=== PATIENT | male | born 1965 | race American Indian/Alaskan Native ===

== ENCOUNTER 2020-01-07 21:20 | Inpatient (IN) | payer OTHER ==
[2020-01-07 22:21] LABS: #Basophils 0.1 thou/uL (0.0-0.2); #Eosinphils 0.2 thou/uL (0.0-0.7); #Lymphocytes 3.9 thou/uL (1.20-3.40); #Monocytes 0.6 thou/uL (0.11-0.59); #Neutrophils 3.8 thou/uL (1.40-6.50); %Basophils 0.9 % (0.0-1.0); %Eosinophils 2.4 % (0.0-10.0); %Lymphocytes 45.7 % (21.0-51.0); %Monocytes 6.7 % (0.0-10.0); %Neutrophils 44.4 % (42.0-75.0); Hemoglobin 14.6 g/dL (14.0-18.0); Mean Corpuscular HGB CONC 34.8 g/dL (32.0-36.0); Mean Corpuscular Hemoglobin 33.1 pg (27.0-31.0); Mean Platelet Volume 6.8 fL (7.4-10.4); Platelet Count 286 thou/uL (130-400); RBC Distribution Width 11.1 % (11.5-14.5); Red Blood Cell (RBC) Count 4.42 mill/uL (4.70-6.10); White Blood Cell (WBC) Count 8.5 thou/uL (4.8-10.8)
[2020-01-07] MEDS ORDERED: Ketamine 50 MG/ML (10ML VIAL) ONE (22:38)
[2020-01-07 22:44] LABS: ALT (SGPT) 35 U/L (8-55); AST (SGOT) 31 U/L (5-34); Acetaminophen Less than 6.0 mcg/mL (10.0-30.0); Albumin 4.7 g/dL (3.5-5.0); Alcohol 372 mg/dL (Less than 10); Alkaline Phosphatase 54 U/L (40-110); Anion Gap 16 mmol/L (10-20); BUN (Urea Nitrogen) 12 mg/dL (8.4-25.7); Bilirubin, Total 0.6 mg/dL (0.2-1.2); Calc. Creatinine Clearance 0 mL/min (70-130); Calcium 9.4 mg/dL (7.8-10.44); Carbon Dioxide 22 mmol/L (22-29); Chloride 109 mmol/L (98-107); Estimated GFR-MDRD Greater than 90; Globulin 2.9 g/dL (2.4-3.5); Glucose 108 mg/dL (70-105); Potassium 3.5 mmol/L (3.5-5.1); Protein, Total 7.6 g/dL (6.0-8.3); Salicylate Less than 8.0 mg/dL (15.0-30.0); Sodium 143 mmol/L (136-145)
[2020-01-07] MEDS ORDERED: Rocuronium Bromide 50 MG/5 ML VIAL ONE (22:57)
[2020-01-07] MEDS ORDERED: fentaNYL Citrate/PF 2,000 MCG in Sodium Chloride 0.9% 60 ML IV SCH (23:11)
--- NOTE | 2020-01-07 23:16 | RAD ---
Chest one view HISTORY: Chest pain. COMPARISON: 01/03/2015. FINDINGS: Cardiac silhouette is magnified by projection. Pulmonary vasculature is unremarkable. Mediastinum is midline. Tip of an endotracheal catheter overlies the thoracic inlet. Nasogastric tube is coiled over the stomach. Calcified granulomata are consistent with healed granulomatous disease. No lobar consolidation or evidence of pneumothorax. IMPRESSION : Endotracheal catheter and nasogastric tube are in good radiographic position.
[2020-01-07 23:28] LABS: Actual Bicarbonate (HCO3a) 20.5 mEq/L (22-28); Analyzer IN Cardio ER; CO2 Tension 39.6 mmHg (35.0-45.0); Calcium, Ionized (arterial) 1.17 mmol/L (1.12-1.30); Carboxyhemoglobin (COHb) 2.7 gm% (0.0-3.0); Hemoglobin (Hb) 15.4 g/dL (14.0-18.0); O2 Tension (PaO2), arterial 95.6 mmHg (80.0-100.0); pH, Arterial 7.33 (7.35-7.45)
[2020-01-07 23:34] LABS: Puncture Site RRA
[2020-01-08] MEDS ORDERED: Propofol 1,000 MG/100 ML VIAL IV ONE (00:02)
[2020-01-08] MEDS ORDERED: Propofol BOLUS 1,000 MG/100 ML VIAL IV PRN (00:04)
[2020-01-08] MEDS ORDERED: DISCONTINUE PREVIOUS NARCOTIC PAIN MEDICATIONS AND BENZODIAZEPINES FS SCH (00:04)
[2020-01-08] MEDS ORDERED: Fentanyl BOLUS 250 ML IVPB PRN (00:04)
[2020-01-08] MEDS: Lorazepam 2 MG/ML VIAL SLOW IVP PRN ×2 (00:46→07:14)
[2020-01-08] MEDS: Propofol 1,000 MG/100 ML VIAL IV PRN ×2 (00:48→09:45)
[2020-01-08] MEDS: Sodium Chloride 0.9% 1,000 ML IV SCH ×5 (00:49→20:21)
[2020-01-08 02:37] LABS: Bilirubin Negative (Negative); Blood, Urine Negative (Negative); Clarity Clear (Clear); Glucose, Urine (Dipstick) Normal (Negative); Ketone, Urine Negative (Negative); Leukocyte Negative Leu/uL (Negative); Nitrite Negative (Negative); Protein, Urine (Dipstick) 10 mg/dL (Neg-Trace); Urobilinogen Normal mg/dL (Less than 2)
[2020-01-08 02:53] LABS: Benzodiazepine Screen Detected (NotDetected); Medtox Reader # READER 1
[2020-01-08 02:54] LABS: Amphetamine Not Detected (NotDetected); Barbiturates Screen Not Detected (NotDetected); Cocaine Metabolite Screen Not Detected (NotDetected); Medtox Control Line Valid? VALID (VALID); Methadone Not Detected (NotDetected); Methamphetamine Not Detected (NotDetected); Opiate Screen Not Detected (NotDetected); Oxycodone Screen Not Detected (NotDetected); Phencyclidine (PCP) Not Detected (NotDetected); THC/Cannabinoid Screen Not Detected (NotDetected); Tricyclic Screen Not Detected (NotDetected)
--- NOTE | 2020-01-08 03:12 | HP ---
REASON FOR ADMISSION: Suicidal ideation and attempts. HISTORY OF PRESENT ILLNESS: This is a 54-year-old male patient, who was found to be planning to end his life by hanging himself. EMS did bring him to the ER. He was intoxicated with alcohol. In the ER, he was very agitated and at some point was not able to protect his airways, he ended up being intubated. From records, I see that he did lose his mother recently and had intent to hang himself tonight and at some point, in the ER, he was very belligerent. I did review his records and his last admission was in 2016 for alcoholic pancreatitis. PAST MEDICAL HISTORY: 1. High cholesterol. 2. Epilepsy. 3. Anxiety. 4. Depression with suicidal attempts. 5. Pancreatitis. SOCIAL HISTORY: He is known to be alcoholic, known to smoke cigarettes. FAMILY HISTORY: Unable to obtain. REVIEW OF SYSTEMS: Unable to obtain. He is intubated. PHYSICAL EXAMINATION: GENERAL: He is intubated, sedated. VITAL SIGNS: His blood pressure is 85/52, his pulse is 64, afebrile. HEENT: Head is nontraumatic, normocephalic. Pupils equal, reactive. NECK: Supple. HEART: S1, S2 regular. No murmur. No gallops. No friction rubs. No displacement of PMI. LUNGS: Inspiratory rhonchi bilaterally. ABDOMEN: Bowel sounds are positive. Nontender abdomen. EXTREMITIES: No lower extremity edema. No cyanosis. NEUROLOGIC: Unable to assess. He is intubated. LABORATORY DATA: Blood work shows WBC of 8.5, hemoglobin is 14.6, platelets of 286. ABG shows pH 7.33, pCO2 39.6, sodium 143, potassium 3.5, bicarb of 22, creatinine 0.82. Tox screen shows an alcohol level 372. Chest x-ray shows ET tube in good position, otherwise, no pneumonia. ASSESSMENT AND PLAN: This is a 54-year-old male patient, who was attempting to commit suicide and brought by EMS. He was very belligerent, did receive medication for sedation, then, he was not able to protect his airway, ended up being intubated. The patient is currently intubated in the unit. We will continue with our sedation protocol and at some point, when he is medically cleared, we will have [facility] see him until then, he will be on IV fluids, on IV thiamine. We will recheck his labs in the morning. He will have SCD for DVT prophylaxis. Job ID: [id number]
[2020-01-08 03:51] LABS: #Basophils 0.1 thou/uL (0.0-0.2); #Eosinphils 0.1 thou/uL (0.0-0.7); #Lymphocytes 2.7 thou/uL (1.20-3.40); #Monocytes 0.4 thou/uL (0.11-0.59); #Neutrophils 6.7 thou/uL (1.40-6.50); %Basophils 0.6 % (0.0-1.0); %Eosinophils 0.6 % (0.0-10.0); %Monocytes 4.4 % (0.0-10.0); %Neutrophils 67.4 % (42.0-75.0); Hemoglobin 14.3 g/dL (14.0-18.0); Mean Corpuscular HGB CONC 35.5 g/dL (32.0-36.0); Mean Corpuscular Hemoglobin 34.3 pg (27.0-31.0); Mean Corpuscular Volume 96.6 fL (78.0-98.0); Mean Platelet Volume 7.3 fL (7.4-10.4); Platelet Count 269 thou/uL (130-400); RBC Distribution Width 11.3 % (11.5-14.5); Red Blood Cell (RBC) Count 4.17 mill/uL (4.70-6.10)
[2020-01-08 04:17] LABS: Anion Gap 16 mmol/L (10-20); BUN (Urea Nitrogen) 13 mg/dL (8.4-25.7); Calc. Creatinine Clearance 98 mL/min (70-130); Calcium 8.4 mg/dL (7.8-10.44); Carbon Dioxide 19 mmol/L (22-29); Chloride 112 mmol/L (98-107); Estimated GFR-MDRD Greater than 90; Glucose 87 mg/dL (70-105); Magnesium 1.9 mg/dL (1.6-2.6); Potassium 4.1 mmol/L (3.5-5.1); Sodium 143 mmol/L (136-145)
[2020-01-08] MEDS: Morphine 2 MG/ML VIAL SLOW IVP PRN ×2 (04:45→06:01)
--- NOTE | 2020-01-08 08:22 | PDOC.HOSPP ---
- Subjective Encounter Date: 01/08/20 Encounter Time: 07:00 Subjective: no overnight events. this morning, intubated and sedated. Mildly agitated when examining - Objective Vital Signs & Weight: Vital Signs (12 hours) Temp Pulse Resp BP Pulse Ox 01/08/20 07:52 66 110/67 01/08/20 06:00 14 01/08/20 04:00 98.4 F 14 01/08/20 02:44 65 01/08/20 02:00 14 01/08/20 00:31 65 01/08/20 00:00 98.6 F 14 100 Weight Weight 137 lb 12.623 oz Most Recent Monitor Data Heart Rate from ECG 67 NIBP 110/67 NIBP BP-Mean 81 Respiration from ECG 14 SpO2 100 I&O: 01/07/20 01/08/20 01/09/20 06:59 06:59 06:59 Intake Total 815 Output Total 1080 60 Balance -265 -60 Result Diagrams: 01/08/20 03:24 01/08/20 03:24 Hospitalist ROS - Review of Systems ROS unobtainable: due to endotracheal tube - Medication Medications: Active Medications Generic Name Dose Route Start Last Admin Trade Name Freq PRN Reason Stop Dose Admin Thiamine HCl 100 mg/ Sodium 51 mls @ 100 mls/hr 01/08/20 02:30 01/08/20 03:12 Chloride IVPB 51 mls Q24HR SUZY Administration Lorazepam 2 mg 01/08/20 00:04 01/08/20 07:14 Ativan SLOW IVP 02/07/20 00:04 2 mg Q1H PRN Administration Breakthrough agitation Morphine Sulfate 2 mg 01/08/20 00:04 01/08/20 06:01 Morphine SLOW IVP 02/07/20 00:04 2 mg Q1H PRN Administration Breakthrough Pain/Agitation Propofol 1,000 mg 01/08/20 00:04 01/08/20 00:48 Diprivan IV 02/07/20 00:04 1,000 mg INF PRN Administration TO ACHIEVE GOAL RASS Protocol - Exam General - other findings: intuabted and sedated Eye: PERRL, anicteric sclera ENT: normocephalic atraumatic Neck: no JVD Heart: RRR, no murmur, no gallops, no rubs Respiratory: CTAB, no wheezes, no rales, no ronchi Gastrointestinal: soft, non-distended, normal bowel sounds Extremities: no edema Hosp A/P - Plan #suicide attempt Intubated for airway protection ventilation as per PCCM upon extubation, 1-on-1 sitter [facility] prior to DC #Normal anion gap acidosis -hyperchloremic, likley due to normal saline -reduced IVF rate #alcohol abuse positive serum alcohol on presentation ASE protocol Full code GI PPx no Ix DVT PPx lovenox ELOS 1-2 nights
[2020-01-08] MEDS ORDERED: Dextrose 50% Abboject 50 ML SYRINGE SLOW IVP PRN (08:23)
[2020-01-08] MEDS ORDERED: Dextrose 5% in Water 1,000 ML IV PRN (08:23)
[2020-01-08] MEDS ORDERED: Haloperidol Lactate 5 MG/ML VIAL IM SCH (08:30)
[2020-01-08 10:59] VITALS: BP 99/66
[2020-01-08 11:00] VITALS: BMI 22.8
[2020-01-08] MEDS: Enoxaparin Sodium 40 MG/0.4 ML SYRINGE SC SCH (11:04)
--- NOTE | 2020-01-08 22:22 | CON ---
DATE OF CONSULTATION: 01/08/2020 HISTORY OF PRESENT ILLNESS: The patient is a very pleasant 54-year-old male, who presented with alcohol intoxication last night. It is reported that he had suicidal ideation. He required the police to escort him. Apparently, he had a brother who with a suicide, the mother , and he has been suicidal since then and drinking a lot. 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 Apparently, he had a noose tied to the ceiling when police department arrived. He was given ketamine. I am told by the pharmacy that he received 350 mg of ketamine. He had no other drugs given. He subsequently was intubated. I was consulted to assist in his management. PAST MEDICAL HISTORY: Remarkable for: 1. Lipid disorder. 2. History of seizure disorder. 3. History of depression in the past. 4. History of anxiety. 5. History of pancreatitis. SOCIAL HISTORY: He smokes and drinks. FAMILY HISTORY: Remarkable for having multiple siblings. His brother of a suicide. It is unknown why his father , but family suspects there may have been a suicide. His mother recently , which has led to an aggravation of his depression. PHYSICAL EXAMINATION: VITAL SIGNS: Heart rate is in the 60s, blood pressure 122/79, respiratory rate is in the teens, oximetry is 100%. EYES: Pupils are equal. Sclerae are anicteric. NECK: Supple without lymphadenopathy. LUNGS: Clear. HEART: Regular rhythm. S1 and S2 are normal. ABDOMEN: Soft and nontender. EXTREMITIES: Without clubbing, cyanosis, or edema. He moves all 4 extremities to command. IMAGING: Chest x-ray shows no infiltrates. IMPRESSION: Suicidal ideation with alcohol intoxication. He was observed in the ICU for quite some time this morning and met criteria for extubation. He subsequently has been extubated. After 24 hours, MR will need to be involved based on the history provided by the . It is seems clear to me that he needs inpatient management initially of his depression. I do not think it would be appropriate to discharge him home even if he is cleared by [facility]. I feel very strongly about this. His is an extremely reliable historian and is very concerned about how out of control his depression and drinking are at this time. Critical care time 35 min. Job ID: [id number] [facility]
[2020-01-09] MEDS: Sodium Chloride 0.9% 1,000 ML IV SCH ×2 (02:48→15:43)
[2020-01-09 04:04] LABS: Alcohol Less than 10 mg/dL (Less than 10); Anion Gap 12 mmol/L (10-20); BUN (Urea Nitrogen) 14 mg/dL (8.4-25.7); Calc. Creatinine Clearance 100 mL/min (70-130); Calcium 8.2 mg/dL (7.8-10.44); Carbon Dioxide 22 mmol/L (22-29); Chloride 108 mmol/L (98-107); Estimated GFR-MDRD Greater than 90; Glucose 118 mg/dL (70-105); Magnesium 1.8 mg/dL (1.6-2.6); Potassium 3.7 mmol/L (3.5-5.1); Sodium 138 mmol/L (136-145)
[2020-01-09] MEDS ORDERED: traZODone HCl 50 MG TAB PO PRN (07:28)
--- NOTE | 2020-01-09 07:31 | PRG ---
DATE OF SERVICE: 01/09/2020 SUBJECTIVE: Mr. Ernst awakens easily. OBJECTIVE: VITAL SIGNS: His heart rate is 60, blood pressure 132/76, respiratory rates in the teens, and oximetry is 94%. LUNGS: Clear. HEART: Regular rhythm. ABDOMEN: Soft. EXTREMITIES: Without edema. LABORATORY DATA: Sodium 138, potassium 3.7, chloride 108, bicarb 22, BUN 14, and creatinine 0.7. IMPRESSION: 1. Status post intubation for alcohol intoxication and agitation. 2. Suicidal ideation. He had a noose hanging in his home when he was found. I believe strongly that he needs to be an inpatient somewhere for his depression. I would not recommend discharging him home. Job ID: [id number]
[2020-01-09] MEDS ORDERED: Escitalopram Oxalate 10 mg Tablet PO SCH (09:00)
[2020-01-09] MEDS: Enoxaparin Sodium 40 MG/0.4 ML SYRINGE SC SCH (09:08)
[2020-01-09 12:32] VITALS: TEMP 99.9
--- NOTE | 2020-01-12 05:07 | PQF ---
CLINICAL DOCUMENTATION CLARIFICATION FORM: Dear : Jonathan Thompson Date / Time:01/12/20504 Please exercise your independent, professional judgment in responding to the clarification form. Clinical indicators are provided on the bottom of this form for your review Please check appropriate box(es) to clarify if the following diagnosis has been ruled in our ruled out: Respiratory Failure [ ] Ruled in diagnosis If Respiratory Failure is ruled in, can you please identify the acuity if [ ] Acute [ ] Acute on Chronic [ ] Chronic [ x] Ruled out diagnosis [ ] Improving [ ] Cannot rule out diagnosis [ ] Other diagnosis [ ] Unable to determine Physician Signature: Date/Time: For continuity of documentation, please document condition throughout progress notes and discharge summary. Thank You. To be completed by CDI/Coding staff for physician review: Present Clinical Indicators - Signs / Symptoms / Labs Results and Location in Medical Record [X] O2 sat 92%; 96%; 97%, 95% Vital signs 01/07 [X] BP 137/92, Pulse 133, Resp 21 Vital signs 01/07 [X] Respiratory failures/p sedation ED notes p 10 [X] Suicidal ideation ED notes p 10 [X] "Found planning to end his life by hanging himself H&P p1 01/07 Dr Lala [X] He was intoxicated with Alcohol H&P p1 01/07 Dr Lala Present Risk Factors Results and Location in Medical Record [X] 54 year-old Male H&P p1 01/07 Dr Lala [X] Epilepsy H&P p1 01/07 Dr Lala [X] Depression H&P p1 01/07 Dr Lala [X] Anxiety H&P p1 01/07 Dr Lala Present Treatments Results and Location in Medical Record [X] On Mechanical ventilator Respiratory Panel 01/07 [X] IVF NS 1L MAR 01/07 [X] Chest X-ray Imaging Dr Johnson 01/06 CDS/Sql Programmer Signature: Ana M Guzmanyudy Phone #: [phone] Date/Time: 01/12/20504 This is a permanent part of the Medical Record [facility]
--- NOTE | 2020-01-12 07:04 | DIS ---
DATE OF ADMISSION: 01/08/2020 DATE OF DISCHARGE: 01/09/2020 HOSPITAL COURSE: Mr. Ernst is a 54-year-old male with medical history of hypertension and depression, who was admitted for a suicide attempt. The patient had an argument with his brother over the phone, drank alcohol, and attempted to hang himself with his sheets. He was found down after the brother called the police in order to check on the patient. On admission, the patient required intubation for airway protection. He was extubated successfully the day following admission. [facility] assessed the patient and deemed him fitting the criteria of inpatient psychiatry. He was discharged to inpatient psychiatry, hemodynamically stable with no complaints. PHYSICAL EXAMINATION: VITAL SIGNS: Blood pressure 142/75, heart rate 70, respiratory rate 20, oxygen saturation 100% on room air, and temperature 99.9 Fahrenheit. GENERAL: Lying comfortably in bed. Awake and alert. HEENT: Normocephalic, atraumatic. EOMI. PERRL. CARDIAC: Regular rate and rhythm. No murmurs, gallops, or rubs. LUNGS: Clear to auscultation bilaterally. No wheezing, rales, or rhonchi. GASTROINTESTINAL: Soft, nontender, and nondistended. Normal bowel sounds. PSYCHIATRIC: Flat affect. Proper mood. Alert and oriented x3. MEDICATION LIST: New medications: No new medications. Modified medications: No modified medications. Discontinued medications: No discontinued medications. Continued medications: 1. Citalopram 10 mg p.o. daily (the patient endorses only recently being started on citalopram). 2. Trazodone (for sleep per the patient). 3. Tylenol No. 3. 4. Aspirin. 5. Atorvastatin. 6. Vitamin B12. 7. Folic acid. 8. Pantoprazole. 9. Thiamine. Job ID: [id number]
--- NOTE | 2020-01-17 14:33 | EKG ---
Test Reason : Blood Pressure : / mmHG Vent. Rate : 101 BPM Atrial Rate : 101 BPM P-R Int : 162 ms QRS Dur : 092 ms QT Int : 360 ms P-R-T Axes : 047 075 034 degrees QTc Int : 466 ms Sinus tachycardia Otherwise normal ECG Confirmed by JAKE CRUZ, JOSE Klein ([id number]), make up editor PEDRO REYES ([id number]) on 01/17/2020 2:32:33 PM Referred By: Confirmed By:JSOE JOSEPH MD
== END 2020-01-09 21:57 | DRG 914 ==
LOC: ERS 21:20 → EEVIPCON 01-08 00:12 → CCU 01-08 00:12
PROVIDERS: ADMIT Internal Medicine; ATTEND Internal Medicine
PROC: 5A1935Z Respiratory Ventilation, Less than 24 Consecutive Hours (ICD-10-PCS; principal; 2020-01-08)
PROC: 0BH17EZ Insertion of Endotracheal Airway into Trachea, Via Natural or Artificial Opening (ICD-10-PCS; 2020-01-08)
DX: T14.91XA Suicide attempt, initial encounter (principal); E87.2 Acidosis; E78.00 Pure hypercholesterolemia, unspecified; F41.9 Anxiety disorder, unspecified; G40.909 Epilepsy, unspecified, not intractable, without status epilepticus; E87.8 Other disorders of electrolyte and fluid balance, not elsewhere classified; F17.210 Nicotine dependence, cigarettes, uncomplicated; F10.129 Alcohol abuse with intoxication, unspecified; Y90.8 Blood alcohol level of 240 mg/100 ml or more; Z78.1 Physical restraint status; Z91.5 Personal history of self-harm; Z79.899 Other long term (current) drug therapy
CPT/HCPCS: 31500; 36415; 36416; 51702; 71045; 80048; 80053; 80306; 80307; 81003; 82805; 83735; 85025; 93005; 94002; J1630; J1650; J2060; J2270; J2704; J3010; J3411; J3490